=== PATIENT | male | born 1935 | race Caucasian/White ===

== ENCOUNTER → 2020-09-12 11:55 | Outpatient (CLI) | payer MEDICARE, SELFPAY ==
--- NOTE | 2020-09-12 11:59 | DI.MRI.S_ITS ---
PROCEDURE: MR PELIS WO/W CON INDICATIONS: prostate cancer TECHNIQUE: Coronal HASTE, axial T1 FSE with fat saturation, 3-plane nonbreath-hold T2 FSE. After the administration of contrast, dynamic axial, delayed axial and coronal VIBE or 2-D FLASH with fat saturation through the pelvis. Optional diffusion weighted imaging and ADC may be performed. COMPARISON: None. FINDINGS: Image quality: T2 imaging is adequate. Diffusion and ADC imaging is nondiagnostic. Prostate: Gland size is 5.5 x 3.3 x 4.4 cm; ellipsoid gland volume is 41.5 mL. 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 There is a soft tissue defect along the superior prostate suggesting a prior TURP. Lesion size(s): Lesion 1: Approximately 2.1 cm in axial plane. Lesion 2: 0.3 cm in the axial plane Lesion 3: 0.4 cm in the axial plane Lesion location(s) (sector): Lesion 1: Right lateral peripheral zone mid gland to apex. Lesion 2: Left anterior transitional zone mid gland Lesion 3: Left central transitional zone base. Lesion description: Lesion 1: Amorphous, curvilinear area of mildly decreased T2 signal. Mildly T1 hyperintense. Lesion 2: Focal ovoid markedly T2 hypointense, vague T1 hyperintensity Lesion 3: Focal ovoid markedly T2 hypointense, vague T1 hyperintensity T2 weighted imaging (T2WI) morphology score: Lesion 1: Three Lesion 2: Four Lesion 3: Four Diffusion weighted imaging (DWI) morphology score: Lesion 1: Nondiagnostic Lesion 2: Nondiagnostic Dynamic contrast enhancement (DCE): Lesion 1: Absent Lesion 2: Absent Lesion 3: Absent Lesion PI-RADS score: Lesion 1: PI-RADS not able to be well assessed due to lack of diagnostic diffusion imaging and precontrast T1 hyperintensity. Lesion 2: PI-RADS three Lesion 3: PI-RADS three Genitourinary system: Bladder wall thickness is normal. Distal ureters are non distended. Bowel and peritoneum: No pathologic free pelvic fluid. Inferior colon and small bowel loops are normal in caliber. Nodes and vessels: No pelvic or inguinal adenopathy by size criteria. Iliac vessels are normal in caliber. Soft tissues: Small fat containing bilateral inguinal hernias. There is a small fat containing right femoral hernia and moderate-sized sigmoid colon and fat containing left direct or spigelian hernia.. Bones: Marrow demonstrates normal overall signal, without lesions to suggest metastases. IMPRESSION: 1. Indeterminate prostate lesions, one in the right peripheral zone and two in the left transitional zone. Correlation with prior MRIs and prior biopsy results are recommended. 2. Lesion 2 and 3 may represent fiducial markers given marked T2 hypointensity. Correlate with history. 3. Bilateral pelvic hernias as described. Dictated by: Rosemary Winkler M.D. on 09/12/2020 at 15:55 Approved by: Rosemary Winkler M.D. on 09/12/2020 at 16:19
== END ==
PROVIDERS: PCP Student in an Organized Health Care Education/Training Program; Referring Provider Specialist; Visit Provider Specialist
DX: C61 Malignant neoplasm of prostate (principal)
CPT/HCPCS: 72197